=== PATIENT | male | born 1955 | race Caucasian/White ===

== ENCOUNTER 2020-04-04 10:05 | Inpatient (IN) | payer BC ==
[~2020-04-04] VITALS: Ht 177.8 cm; Wt 99.3 kg
[2020-04-04 11:22] LABS: BASOPHILS # (AUTO) 0.1 X10'3 (0-0.2); BASOPHILS % (AUTO) 0.2 % (0-1); EOSINOPHILS % (AUTO) 0 % (0-6); HEMATOCRIT 41.1 % (42.0-52.0)
[2020-04-04 11:23] LABS: HEMOGLOBIN 13.6 g/dl (14.0-17.9); LYMPHOCYTES # (AUTO) 20.5 X10'3 (1.1-4.8); LYMPHOCYTES % (AUTO) 58.5 % (21-51); MEAN CORPUSCULAR HGB CONC 33.2 g/dL (33.0-36.5); MEAN CORPUSCULAR VOLUME 93.4 FL (78-98); MEAN PLATELET VOLUME 7.1 FL (7.4-10.4); MONOCYTES # (AUTO) 0.9 X10'3 (0-0.9); MONOCYTES % (AUTO) 2.7 % (2-12); NEUTROPHILS # (AUTO) 13.5 X10'3 (1.8-7.7); NEUTROPHILS % (AUTO) 38.6 % (42-75); PLATELET COUNT 231 X10'3 (140-440); RED BLOOD COUNT 4.41 X10'6 (4.70-6.10); RED CELL DISTRIBUTION WIDTH 14.3 % (11.5-14.5)
[2020-04-04] MEDS ORDERED: polyethylene glycol 3350 17gm powd pack PO STA (11:33)
[2020-04-04] MEDS ORDERED: docusate sod 100mg capsule PO ONE (11:35)
[2020-04-04 11:37] LABS: ALANINE AMINOTRANSFERASE 33 U/L (12-78); ALBUMIN 3.5 G/DL (3.4-5.0); ALKALINE PHOSPHATASE 54 IU/L (46-116); ANION GAP 9 (8-16); ASPARTATE AMINO TRANSFERASE 38 U/L (10-37); BILIRUBIN,TOTAL 1.2 MG/DL (0.1-1.0); BLOOD UREA NITROGEN 41 MG/DL (7-18); BUN/CREATININE RATIO 10.5 (5.4-32.0); CALCIUM 8.5 MG/DL (8.5-10.1); CHLORIDE 97 MMOL/L (99-107); CREATININE 3.91 MG/DL (0.60-1.10); GLUCOSE 109 MG/DL (70-104); LIPASE < 50 U/L (73-393); POTASSIUM 3.5 MMOL/L (3.5-5.1); SODIUM 136 MMOL/L (135-145); TOTAL CARBON DIOXIDE 30.2 MMOL/L (24-32); TOTAL PROTEIN 6.9 G/DL (6.4-8.2); eGFR 16 ML/MIN
[2020-04-04 12:01] LABS: TOTAL CELLS COUNTED 100
[2020-04-04 12:02] LABS: IMMATURE CELLS 0 % (0-0); PLATELET ESTIMATE NORMAL; SMUDGE CELLS 2+
[2020-04-04] MEDS ORDERED: LIDOcaine 2% 10ml TOPICAL JELLY (Urojet) TP ONE ×2 (13:05→15:50)
[2020-04-04] MEDS: normal saline 1000ML IV soln IVB ONE ×2 (13:10→13:31)
[2020-04-04] MEDS ORDERED: ondansetron 4mg rapidly disintigrating tab PO ONE (13:25)
[2020-04-04 13:43] LABS: CLARITY,URINE CLOUDY (Clear); COLOR,URINE YELLOW (Yellow); GLUCOSE, URINE NEGATIVE (Neg); KETONES,URINE NEGATIVE (Neg); LEUKOCYTE ESTERASE ,URINE LARGE (Neg); NITRITES, URINE NEGATIVE (Neg); OCCULT BLOOD,URINE LARGE (Neg); PROTEIN,URINE 30 mg/dl (Neg); UA COLLECTION TYPE FOLEY CATH; UROBILINOGEN,URINE 0.2 E.U/dL (0.2-1.0)
[2020-04-04 13:49] LABS: SQUAMOUS EPITHELIAL CELL,UR FEW /LPF (FEW)
[2020-04-04 13:50] LABS: BACTERIA,URINE 3+ /HPF (Neg); RBC,URINE 20-50 /HPF (0-2); TRANSITIONAL EPI CELLS,URINE FEW /HPF; WBC,URINE 30-50 /HPF (0-4)
[2020-04-04 13:51] LABS: WBC CLUMPS,URINE FEW /HPF (NEGATIVE)
[2020-04-04] MEDS ORDERED: normal saline 1000ML IV soln IVB ONE (14:20)
[2020-04-04] MEDS ORDERED: bisacodyl 10mg suppository rectal RC PRN (15:50)
[2020-04-04] MEDS ORDERED: potassium Cl 20 mEq SR tablet PO PRN (15:50)
[2020-04-04] MEDS ORDERED: acetaminophen 325mg tablet PO PRN ×2 (15:50)
[2020-04-04] MEDS ORDERED: HYDROcodone/acetaminophen 10/325mg tab PO PRN (15:50)
[2020-04-04] MEDS ORDERED: magnesium hydroxide 30ml (MOM) UD suspension PO PRN (15:50)
[2020-04-04] MEDS ORDERED: magnesium 4gm in 100ml NS 100 ML IV PRN (15:50)
[2020-04-04] MEDS ORDERED: magnesium 2GM in 50ml NS 50 ML IV PRN (15:50)
[2020-04-04] MEDS ORDERED: ondansetron/PF 4mg/2ml inj IV PRN (15:50)
[2020-04-04] MEDS ORDERED: mag hydrox/Alum hydrox/simeth 30ml oral suspension PO PRN (15:50)
[2020-04-04] MEDS ORDERED: HYDROcodone/acetaminophen 5mg/325mg tablet PO PRN (15:50)
[2020-04-04] MEDS ORDERED: potassium CL 10mEq/100ml bag 100 ML IV PRN ×2 (15:50)
[2020-04-04] MEDS ORDERED: magnesium Cl slow-release 64mg tablet PO PRN (15:50)
[2020-04-04] MEDS ORDERED: ALFU10TA10 PO (15:55)
[2020-04-04] MEDS ORDERED: FINA5TAB12 PO (15:55)
[2020-04-04] MEDS ORDERED: NALTREXONE PO (15:55)
[2020-04-04] MEDS: normal saline 1000ml 1,000 ML IV SCH ×2 (16:40→23:50)
[2020-04-04 17:45] VITALS: BP 136/80
--- NOTE | 2020-04-04 18:31 | NUR ---
Patient in room [facility]. I have received report from Mary LOUIS and had the opportunity to ask questions and assume patient care.
--- NOTE | 2020-04-04 18:37 | NUR ---
Problems reprioritized. Patient report given, questions answered & plan of care reviewed with MISSY Alonso.
[2020-04-04 20:00] VITALS: BP 143/77
[2020-04-04] MEDS: K and/or MAG REPLACEMENT MC SCH (20:00)
[2020-04-04] MEDS: NALTREXONE 4.5 MG PO SCH (21:00)
[2020-04-04] MEDS: heparin, porcine 5000 units/ml vial SQ SCH (21:23)
[2020-04-04] MEDS: tamsulosin 0.4mg capsule PO SCH (21:23)
[2020-04-04] MEDS: temazepam 15mg capsule PO PRN (21:24)
[2020-04-05] VITALS: BP 136/75
[2020-04-05] MEDS: normal saline 1000ml 1,000 ML IV SCH ×3 (01:21→16:21)
[2020-04-05 05:18] LABS: EOSINOPHILS % (AUTO) 0 % (0-6); HEMOGLOBIN 12.9 g/dl (14.0-17.9); MONOCYTES # (AUTO) 0.9 X10'3 (0-0.9); RED CELL DISTRIBUTION WIDTH 14.2 % (11.5-14.5)
[2020-04-05 05:21] LABS: BASOPHILS % (AUTO) 0.1 % (0-1); HEMATOCRIT 38.1 % (42.0-52.0); LYMPHOCYTES % (AUTO) 58.2 % (21-51); MEAN CORPUSCULAR HEMOGLOBIN 31.6 PG (27.0-31.0); MEAN CORPUSCULAR HGB CONC 33.8 g/dL (33.0-36.5); MEAN CORPUSCULAR VOLUME 93.5 FL (78-98); MEAN PLATELET VOLUME 7.5 FL (7.4-10.4); MONOCYTES % (AUTO) 3.1 % (2-12); NEUTROPHILS # (AUTO) 11.3 X10'3 (1.8-7.7); NEUTROPHILS % (AUTO) 38.6 % (42-75); PLATELET COUNT 207 X10'3 (140-440); RED BLOOD COUNT 4.08 X10'6 (4.70-6.10)
[2020-04-05 05:32] LABS: ALANINE AMINOTRANSFERASE 26 U/L (12-78); ALBUMIN 2.7 G/DL (3.4-5.0); ALBUMIN/GLOBULIN RATIO 0.8 (1.1-1.5); ALKALINE PHOSPHATASE 48 IU/L (46-116); ANION GAP 7 (8-16); ASPARTATE AMINO TRANSFERASE 18 U/L (10-37); BILIRUBIN,TOTAL 0.9 MG/DL (0.1-1.0); BLOOD UREA NITROGEN 23 MG/DL (7-18); BUN/CREATININE RATIO 17.6 (5.4-32.0); CALCIUM 8.1 MG/DL (8.5-10.1); CHLORIDE 103 MMOL/L (99-107); CREATININE 1.31 MG/DL (0.60-1.10); GLUCOSE 95 MG/DL (70-104); MAGNESIUM 2.7 MG/DL (1.5-2.4); POTASSIUM 3.3 MMOL/L (3.5-5.1); SODIUM 139 MMOL/L (135-145); TOTAL CARBON DIOXIDE 29.1 MMOL/L (24-32); TOTAL PROTEIN 5.9 G/DL (6.4-8.2); WHITE BLOOD COUNT 29.2 X10'3 (4.5-11.0); eGFR 55 ML/MIN
--- NOTE | 2020-04-05 06:00 | NUR ---
Patient in room [facility]. I have received report from MISSY Alonso and had the opportunity to ask questions and assume patient care.
--- NOTE | 2020-04-05 06:34 | NUR ---
Problems reprioritized. Patient report given, questions answered & plan of care reviewed with Randall LOUIS.
[2020-04-05 07:35] LABS: TOTAL CELLS COUNTED 100
[2020-04-05 07:37] LABS: PLATELET ESTIMATE NORMAL; SMUDGE CELLS 3+
[2020-04-05 08:00] VITALS: BP 146/80
[2020-04-05] MEDS ORDERED: ALFUZOSIN HCL PO SCH (08:00)
[2020-04-05] MEDS: potassium Cl 20 mEq SR tablet PO PRN ×3 (08:12→23:26)
[2020-04-05] MEDS: finasteride 5mg tablet PO SCH (08:13)
[2020-04-05] MEDS: heparin, porcine 5000 units/ml vial SQ SCH ×2 (08:13→19:53)
[2020-04-05] MEDS: K and/or MAG REPLACEMENT MC SCH ×2 (08:44→19:14)
[2020-04-05] MEDS: levoFLOXACIN-Levaquin 500mg/D5 100 ML IV SCH (09:39)
[2020-04-05 11:00] VITALS: BP 152/86
--- NOTE | 2020-04-05 11:30 | NUR ---
Patient contacted the floor. Patient asked if MD would refer the patient to [facility] for their medical care and if there was anything that could be done to prevent this acute problem from reoccuring. I stated I would pass on her concerns to the MD. MD stated there is no emergent problem to justify referral to [facility] and to avoid the current problem the patient needs to continue taking prescribed medications.
--- NOTE | 2020-04-05 13:57 | NUR ---
called again asking if the MD will transfer patient to [facility]. informed that there were no orders to D/C at this time. asked if she could bring in patient Ballot and phone traveling missionary, informed that they can drop off at security and then return to [facility] pick[facility] ballot at a later time. stated, "You guys are fantastic thank you, I'll stop by soon. "
[2020-04-05] MEDS: metroNIDAZOLE-Flagyl 500mg/NS 100 ML IV SCH ×2 (16:20→23:26)
--- NOTE | 2020-04-05 16:51 | NUR ---
Paged MD regarding bowel prep and sleep aid.
--- NOTE | 2020-04-05 18:42 | NUR ---
Patient in room [facility]. I have received report from Randall LOUIS and had the opportunity to ask questions and assume patient care. Pt just getting back into bed. No signs of distress, will continue to monitor.
--- NOTE | 2020-04-05 18:49 | NUR ---
Problems reprioritized. Patient report given, questions answered & plan of care reviewed with MISSY Morales .
[2020-04-05] MEDS: temazepam 15mg capsule PO PRN ×2 (19:53→23:25)
[2020-04-05] MEDS: tamsulosin 0.4mg capsule PO SCH (19:53)
[2020-04-05] MEDS: NALTREXONE 4.5 MG PO SCH (19:57)
[2020-04-05 20:00] VITALS: BP 161/99
[2020-04-06] VITALS: BP 170/96
[2020-04-06 00:30] VITALS: BP 158/88
[2020-04-06 04:58] LABS: BASOPHILS % (AUTO) 0.1 % (0-1); NEUTROPHILS # (AUTO) 9.1 X10'3 (1.8-7.7)
[2020-04-06 05:00] LABS: EOSINOPHILS % (AUTO) 0.1 % (0-6); HEMATOCRIT 40.2 % (42.0-52.0); HEMOGLOBIN 13.4 g/dl (14.0-17.9); LYMPHOCYTES # (AUTO) 16.9 X10'3 (1.1-4.8); MEAN CORPUSCULAR HEMOGLOBIN 30.8 PG (27.0-31.0); MEAN CORPUSCULAR HGB CONC 33.3 g/dL (33.0-36.5); MEAN CORPUSCULAR VOLUME 92.4 FL (78-98); MEAN PLATELET VOLUME 7.1 FL (7.4-10.4); MONOCYTES # (AUTO) 0.8 X10'3 (0-0.9); MONOCYTES % (AUTO) 2.9 % (2-12); NEUTROPHILS % (AUTO) 33.9 % (42-75); PLATELET COUNT 227 X10'3 (140-440); RED BLOOD COUNT 4.35 X10'6 (4.70-6.10); RED CELL DISTRIBUTION WIDTH 14.2 % (11.5-14.5)
[2020-04-06 05:13] LABS: ALANINE AMINOTRANSFERASE 40 U/L (12-78); ALBUMIN 2.9 G/DL (3.4-5.0); ALBUMIN/GLOBULIN RATIO 0.8 (1.1-1.5); ALKALINE PHOSPHATASE 57 IU/L (46-116); ANION GAP 9 (8-16); ASPARTATE AMINO TRANSFERASE 27 U/L (10-37); BILIRUBIN,TOTAL 0.8 MG/DL (0.1-1.0); BLOOD UREA NITROGEN 13 MG/DL (7-18); BUN/CREATININE RATIO 14.1 (5.4-32.0); CALCIUM 8.1 MG/DL (8.5-10.1); CHLORIDE 105 MMOL/L (99-107); CREATININE 0.92 MG/DL (0.60-1.10); GLUCOSE 110 MG/DL (70-104); MAGNESIUM 2.1 MG/DL (1.5-2.4); POTASSIUM 3.9 MMOL/L (3.5-5.1); SODIUM 140 MMOL/L (135-145); TOTAL CARBON DIOXIDE 26.4 MMOL/L (24-32); TOTAL PROTEIN 6.4 G/DL (6.4-8.2); eGFR 83 ML/MIN
[2020-04-06 05:21] LABS: WHITE BLOOD COUNT 26.9 X10'3 (4.5-11.0)
[2020-04-06] MEDS: normal saline 1000ml 1,000 ML IV SCH ×2 (05:24→19:44)
--- NOTE | 2020-04-06 06:48 | NUR ---
Problems reprioritized. Patient report given, questions answered & plan of care reviewed with Eunice LOUIS.
[2020-04-06 07:00] VITALS: BP 159/100
[2020-04-06 07:08] LABS: TOTAL CELLS COUNTED 100
[2020-04-06 07:09] LABS: PLATELET ESTIMATE NORMAL; SMUDGE CELLS 3+
--- NOTE | 2020-04-06 07:13 | NUR ---
Patient in room [facility]. I have received report from Carmen LOUIS and had the opportunity to ask questions and assume patient care.
[2020-04-06] MEDS: K and/or MAG REPLACEMENT MC SCH ×2 (08:00→20:00)
[2020-04-06] MEDS: levoFLOXACIN-Levaquin 500mg/D5 100 ML IV SCH (08:22)
[2020-04-06] MEDS: finasteride 5mg tablet PO SCH (08:26)
[2020-04-06] MEDS: heparin, porcine 5000 units/ml vial SQ SCH ×2 (08:26→22:22)
[2020-04-06] MEDS: metroNIDAZOLE-Flagyl 500mg/NS 100 ML IV SCH ×3 (09:24→23:14)
[2020-04-06 11:00] VITALS: BP 171/89
[2020-04-06] MEDS ORDERED: polyethylene glycol 3350 17gm powd pack PO PRN (17:20)
--- NOTE | 2020-04-06 17:29 | NUR ---
multiple calls received from patients . Medical release form signed by patient and in chart. Patients seeking referral to [facility]. Dr Bryson aware. patient had multiple BM today. Still asking for MOM. patient educated on use of this appeared to understand.. All cares given to patient. Appears stable at time of report.
--- NOTE | 2020-04-06 18:38 | NUR ---
Problems reprioritized. Patient report given, questions answered & plan of care reviewed with SANGITA LOUIS.
--- NOTE | 2020-04-06 18:41 | NUR ---
Patient in room [facility]. I have received report from Eunice LOUIS and had the opportunity to ask questions and assume patient care.
[2020-04-06 20:00] VITALS: BP 176/101
[2020-04-06 20:50] VITALS: BP 155/92
[2020-04-06] MEDS: NALTREXONE 4.5 MG PO SCH (21:00)
[2020-04-06] MEDS: tamsulosin 0.4mg capsule PO SCH (22:21)
[2020-04-06] MEDS: temazepam 15mg capsule PO PRN ×2 (22:27→23:15)
[2020-04-07] VITALS: BP 161/109
[2020-04-07 05:02] LABS: BASOPHILS % (AUTO) 0.1 % (0-1); EOSINOPHILS # (AUTO) 0.1 X10'3 (0-0.9)
[2020-04-07 05:05] LABS: EOSINOPHILS % (AUTO) 0.6 % (0-6); HEMATOCRIT 40.7 % (42.0-52.0); HEMOGLOBIN 13.6 g/dl (14.0-17.9); LYMPHOCYTES % (AUTO) 66.2 % (21-51); MEAN CORPUSCULAR HGB CONC 33.5 g/dL (33.0-36.5); MEAN CORPUSCULAR VOLUME 92.7 FL (78-98); MONOCYTES # (AUTO) 0.7 X10'3 (0-0.9); MONOCYTES % (AUTO) 2.6 % (2-12); NEUTROPHILS # (AUTO) 7.9 X10'3 (1.8-7.7); NEUTROPHILS % (AUTO) 30.5 % (42-75); PLATELET COUNT 253 X10'3 (140-440); RED BLOOD COUNT 4.39 X10'6 (4.70-6.10); RED CELL DISTRIBUTION WIDTH 14.1 % (11.5-14.5)
[2020-04-07 05:19] LABS: ALANINE AMINOTRANSFERASE 42 U/L (12-78); ALBUMIN 2.9 G/DL (3.4-5.0); ALBUMIN/GLOBULIN RATIO 0.8 (1.1-1.5); ALKALINE PHOSPHATASE 54 IU/L (46-116); ANION GAP 11 (8-16); ASPARTATE AMINO TRANSFERASE 20 U/L (10-37); BILIRUBIN,TOTAL 0.7 MG/DL (0.1-1.0); BLOOD UREA NITROGEN 12 MG/DL (7-18); BUN/CREATININE RATIO 13.2 (5.4-32.0); CALCIUM 8.5 MG/DL (8.5-10.1); CHLORIDE 104 MMOL/L (99-107); CREATININE 0.91 MG/DL (0.60-1.10); GLUCOSE 105 MG/DL (70-104); MAGNESIUM 1.7 MG/DL (1.5-2.4); POTASSIUM 3.3 MMOL/L (3.5-5.1); SODIUM 138 MMOL/L (135-145); TOTAL CARBON DIOXIDE 23.4 MMOL/L (24-32); TOTAL PROTEIN 6.6 G/DL (6.4-8.2); eGFR 84 ML/MIN
[2020-04-07 05:47] LABS: WHITE BLOOD COUNT 25.8 X10'3 (4.5-11.0)
--- NOTE | 2020-04-07 06:28 | NUR ---
Problems reprioritized. Patient report given, questions answered & plan of care reviewed with Eunice LOUIS.
--- NOTE | 2020-04-07 06:45 | NUR ---
Patient in room [facility]. I have received report from henrietta LOUIS and had the opportunity to ask questions and assume patient care.
[2020-04-07 07:00] VITALS: BP 161/87
[2020-04-07] MEDS: heparin, porcine 5000 units/ml vial SQ SCH (07:50)
[2020-04-07] MEDS: finasteride 5mg tablet PO SCH (07:50)
[2020-04-07] MEDS: metroNIDAZOLE-Flagyl 500mg/NS 100 ML IV SCH (07:50)
[2020-04-07] MEDS: normal saline 1000ml 1,000 ML IV SCH (07:50)
[2020-04-07] MEDS: K and/or MAG REPLACEMENT MC SCH (08:00)
[2020-04-07] MEDS ORDERED: LEVO500T89 PO (08:23)
[2020-04-07] MEDS: levoFLOXACIN-Levaquin 500mg/D5 100 ML IV SCH (08:57)
[2020-04-07 10:00] LABS: TOTAL CELLS COUNTED 100
[2020-04-07 10:01] LABS: LARGE PLATELETS FEW; PLATELET ESTIMATE NORMAL; SMUDGE CELLS 3+
[2020-04-07] MEDS ORDERED: potassium Cl 20 mEq SR tablet PO STA (10:20)
[2020-04-07] MEDS ORDERED: PHEN-824 PO (10:42)
--- NOTE | 2020-04-07 11:01 | NUR ---
patient up and about to bathroom, seen by DR Bryson is for DC. DC packet and instructions given to patient. Cruz catheter in place instructions given to patient with regards cruz care. Patient demonstrates understanding. Awaiting a ride home at this time
--- NOTE | 2020-04-07 13:27 | NUR ---
patient DC home via private car with spouse in stable condition. 1230hrs.
--- NOTE | 2020-04-07 17:38 | NUR ---
patients called very verbal and angry insisting that the antibiotic to be given to patient needs to be levaquin and that the cipro previously called in two weeks ago by Dr Mike's was not the right one. Dr stinson paged to clarify this order. new prescription of levaquin called into [facility] [address]. patients is on phone alert for new meds. pharmacy stated patient would be alerted.
== END 2020-04-07 12:09 | disposition home or self-care (01) | DRG 690 ==
LOC: ER 10:06 → ED HOLD 15:48 → SUR 3N 17:27
PROVIDERS: ADMIT Family Medicine; ATTEND Family Medicine
DX: N13.6 Pyonephrosis (principal); C91.10 Chronic lymphocytic leukemia of B-cell type not having achieved remission; E03.9 Hypothyroidism, unspecified; E83.41 Hypermagnesemia; E87.6 Hypokalemia; K52.9 Noninfective gastroenteritis and colitis, unspecified; N40.0 Benign prostatic hyperplasia without lower urinary tract symptoms; N17.9 Acute kidney failure, unspecified; B96.1 Klebsiella pneumoniae [K. pneumoniae] as the cause of diseases classified elsewhere; Z90.49 Acquired absence of other specified parts of digestive tract
CPT/HCPCS: 36415; 74176; 80053; 81001; 83690; 83735; 85007; 85025; 87040; 87077; 87081; 87088; 87186; 99285; G0378; J1644; J1956; J3490; J7030